=== PATIENT | male | born 1980 | race African-American/Black ===

== ENCOUNTER 2022-11-03 18:02 | Emergency (ER) | payer MEDICAID ==
[~2022-11-03] VITALS: Ht 170.2 cm; Wt 82.0 kg
[2022-11-04 00:15] LABS: CHLORIDE 105 mEq/L (98-107)
[2022-11-04 00:22] LABS: ETHANOL BLOOD < 10 mg/dL
[2022-11-04 00:24] LABS: BASOPHILS % 0.2 % (0.0-2.0); EOSINOPHILS % 2.1 % (0.0-5.0); HEMATOCRIT. 39.2 % (42.0-52.0); HEMOGLOBIN. 13.2 g/dL (14.0-18.0); MEAN CORPUSCULAR HEMOGLOBIN 29.4 pg (28.0-32.0); MEAN CORPUSCULAR VOLUME 87.2 fL (80.0-94.0); MEAN PLATELET VOLUME 8.1 fl (7.4-10.4); MONOCYTES % 10.7 % (2.0-8.0); PLATELET 264 x1000/uL (130-400); RED BLOOD CELL COUNT 4.49 mill/uL (4.7-6.1); RED CELL DISTRIBUTION WIDTH 14.1 % (11.6-14.6)
[2022-11-04 00:39] LABS: INR 1.1; PARTIAL THROMBOPLASTIN TIME 27.8 sec (23.4-31.0); PROTHROMBIN TIME 11.8 sec (9.6-11.0)
[2022-11-04 01:37] LABS: *AMPHETAMINES SCREEN URINE PRESUMTIVE POSITIVE (NEGATIVE); *BARBITURATES SCREEN URINE NEGATIVE (NEGATIVE); *BENZODIAZEPINES SCREEN URINE NEGATIVE (NEGATIVE); *COCAINE SCREEN URINE NEGATIVE (NEGATIVE); CANNABINOID URINE SCREEN NEGATIVE (NEGATIVE); METHADONE URINE SCREEN NEGATIVE (NEGATIVE); OPIATES URINE SCREEN NEGATIVE (NEGATIVE); PHENCYCLIDINE URINE SCREEN NEGATIVE (NEGATIVE)
[2022-11-04 01:39] VITALS: BP 131/78
== END 2022-11-05 00:51 | disposition home or self-care (01) ==
LOC: ER 18:02
DX: R45.851 Suicidal ideations (principal); E78.00 Pure hypercholesterolemia, unspecified; I10 Essential (primary) hypertension; Z59.00 Homelessness unspecified; Z86.718 Personal history of other venous thrombosis and embolism; Z20.822 Contact with and (suspected) exposure to COVID-19
CPT/HCPCS: 36415; 80053; 80305; 80307; 80320; 80329; 85025; 85610; 85730; 87426; 93005; 93970; 99285; C9803; G0480

== ENCOUNTER 2022-11-05 01:08 | Emergency (ER) | payer MEDICAID ==
[~2022-11-05] VITALS: Ht 177.8 cm; Wt 116.8 kg
[2022-11-05 01:17] VITALS: BP 156/96
[2022-11-05] MEDS ORDERED: LORAZEPAM 0.5MG TABLET PO ONE (11:15)
== END 2022-11-05 19:27 | disposition home or self-care (01) ==
LOC: ER 01:08
DX: F41.9 Anxiety disorder, unspecified (principal); F32.9 Major depressive disorder, single episode, unspecified; Z59.00 Homelessness unspecified
CPT/HCPCS: 99283; Z7610